=== PATIENT | female | born 1985 | race Caucasian/White ===

== ENCOUNTER 2016-09-16 16:16 | Emergency (ER) | payer OTHER ==
[~2016-09-16] VITALS: Ht 167.6 cm; Wt 76.0 kg
[2016-09-16 16:23] VITALS: Ht 167.6 cm; Wt 76.0 kg
--- NOTE | 2016-09-16 19:58 | RADRPT ---
PROCEDURE: XR Chest. CLINICAL INDICATION: Chest pain. TECHNIQUE: Single frontal view of the chest was obtained COMPARISON: None FINDINGS: The heart and mediastinum are within normal limits. The lungs are clear. There is no pleural effusion or pneumothorax. IMPRESSION: No acute disease. RPTAT: [facility] Physician Maegan Date Time Electronically viewed and signed by Fernandez Carreno Physician on 09/16/2016 19:58 RS/
[2016-09-16] MEDS ORDERED: IBUP-1542 PO (20:37)
[2016-09-16 20:43] VITALS: BP 140/89; PULSE 73; RESP 18
--- NOTE | 2016-09-16 21:05 | ERD ---
ER Documentation Chief Complaint Date/Time DATE: 09/16/16 TIME: 20:57 Chief Complaint Sharp CP since yesterday. HPI Patient is a 31-year-old female who presents to the ED for sharp chest pain for 3 days. Patient states that she has a history of anxiety and has gotten panic attacks in the past. She currently does not have the chest pain. She states the pain comes and comes, is not reproducible and is relieved with deep breaths and laying down. She denies headaches or dizziness. She denies abdominal pain, nausea, vomiting or diarrhea. She denies weakness or sweating. She denies leg pain, swelling or recent travel. She denies SOB or difficulty breathing. She states that she was diagnosed with high blood pressure last week and is currently on hydrochlorothiazide. She has not taken any medications for her pain. She denies fever or chills. ROS All systems reviewed and are negative except as per history of present illness. Medications Home Meds Active Scripts Ibuprofen* (Motrin*) 600 Mg Tab, 600 MG PO Q6, #30 TAB Prov:DOM TURPIN PA-C 09/16/16 Allergies Allergies: Uncoded Allergies: NONE (Allergy, 02/09/12) PRENATALS (Allergy, 02/09/12) PMhx/Soc Medical and Surgical Hx: pt denies Medical Hx History of Surgery: Yes () Anesthesia Reaction: No Hx Neurological Disorder: No Hx Respiratory Disorders: No Hx Cardiac Disorders: Yes (HTN) Hx Psychiatric Problems: No Hx Miscellaneous Medical Probl: No Hx Alcohol Use: No Hx Substance Use: No Hx Tobacco Use: No FmHx Family History: No coronary disease, No diabetes, No other Physical Exam Vitals Vital Signs Date Time Temp Pulse Resp B/P Pulse Ox O2 Delivery O2 Flow Rate FiO2 09/16/16 20:43 73 18 140/89 99 Room Air 09/16/16 16:23 98.9 84 14 155/93 99 Physical Exam GENERAL: Well-developed, well-nourished female. Appears in no acute distress. HEAD: Normocephalic, atraumatic. EYES: Pupils are equally reactive bilaterally. EOMs grossly intact. No conjunctival erythema. ENT: Moist mucous membranes. No uvula deviation. No kissing tonsils. No exudates. NECK: Supple. No lymphadenopathy or thyromegaly. No meningismus. negative kernig negative brudinski LUNG: Clear to auscultation bilaterally. No rhonchi, wheezing, rales or coarse breath sounds. HEART: Regular rate and rhythm. No murmurs, rubs or gallops. Extremities: Equal pulses bilaterally. No peripheral clubbing, cyanosis or edema. No unilateral leg swelling. NEUROLOGIC: Alert and oriented. Moving all four extremities. 5/5 strength in all extremities. Normal speech. Steady gait. SKIN: Normal color. Warm and dry. No rashes or lesions. Capillary refill < 2 seconds Procedures/MDM ER COURSE: I kept the patient and/or family informed of laboratory and diagnostic imaging results throughout the emergency room course. EKG, MONITORS, & DIAGNOSTIC IMAGING: [place] [id number] Radiology Main Line: [phone] DIAGNOSTIC IMAGING REPORT Patient: XIMENA CHAIREZ : 1985 Age: 31 Sex: F MR #: [id number] DOS: 09/16/16 192 Ordering MD: DOM TURPIN PA-C Location: [facility] Room/Bed: PROCEDURE: XR Chest. CLINICAL INDICATION: Chest pain. TECHNIQUE: Single frontal view of the chest was obtained COMPARISON: None FINDINGS: The heart and mediastinum are within normal limits. The lungs are clear. There is no pleural effusion or pneumothorax. IMPRESSION: No acute disease. RPTAT: [facility] Physician Maegan Date Time Electronically viewed and signed by Physician Maegan on 09/16/2016 19:58 RS/ CC: DOM TURPIN PA-C EKG performed, read by Dr. Cardenas, 88 bpm, normal sinus rhythm, normal axis, no acute ST segment changes, no T wave inversion Urine test was negative. MEDICAL DECISION MAKING: This is a 31-year-old female who presents with chest pain. Vital signs were reviewed. Patient is afebrile. Patient is not hypoxic. Patient is not toxic or ill-appearing. Temperature 98.9, pulse 84, blood pressure 155/93, O2 sat 99. Low suspicion for ACS, PE, AAA, dissection, DVT. I have low suspicion for cardiac emergency. Very low risk PERC criteria. Patient has a heart score of 1 , low risk for cardiac emergency. I do not think patient needs blood work or troponins at this time. Patient has had these symptoms in the past and is likely related to anxiety. Patient does not have chest pain at this moment. Has very low PERC criteria. DISCHARGE: At this time, patient is stable for discharge and outpatient management with no new complaints during the ER course. Patient was sent home with ibuprofen. Copy of EKG and chest x-ray was given to patient. Patient will be following up with primary care. Patient advised to return to the ER for any worsening symptoms. patient will be discharged home with instructions to recheck for new or worsening symptoms such as fever, nausea, weakness, LOC and to follow up with primary care in the next 1-2 days. Patient was advised to return to the ER for any new or worsening symptoms. Plan was discussed and patient and/or family understands and agrees. Home instructions were given. Departure Diagnosis: Primary Impression: Chest wall pain Condition: Stable Additional Instructions: Call your primary care doctor TOMORROW for an appointment during the next 1-2 days.See the doctor sooner or return here if your condition worsens before your appointment time. DOM TURPIN PA-C Sep 16, 2016 21:05
== END 2016-09-16 20:53 | disposition home or self-care (01) ==
LOC: FTE 16:16
DX: R07.89 Other chest pain (principal); I10 Essential (primary) hypertension
CPT/HCPCS: 71010; 93005; Z7502